=== PATIENT | female | born 1980 | race Two or more races ===

== ENCOUNTER 2017-01-22 21:12 | Emergency (ER) | payer OTHER ==
[~2017-01-22] VITALS: Ht 167.6 cm; Wt 93.0 kg
[~2017-01-22 21:12] MED LIST: AMOXIL500 M2 PO; IBUPROFEN800 MG; MOTRIN600 MG PO; ROBAXIN 750750 M1
[2017-01-22] MEDS ORDERED: XANAX0.5 M1 PO (21:21)
== END 2017-01-22 22:33 | disposition home or self-care (01) ==
LOC: SED 21:12
DX: M70.32 Other bursitis of elbow, left elbow (principal); F17.210 Nicotine dependence, cigarettes, uncomplicated; Z79.899 Other long term (current) drug therapy
CPT/HCPCS: 29260; 99283

== ENCOUNTER 2017-01-24 14:16 | Emergency (ER) | payer OTHER ==
[~2017-01-24] VITALS: Ht 167.6 cm; Wt 94.8 kg
--- NOTE | ~2017-01-24 | CR90 ---
[facility]. [facility] A Service of [facility] & [facility] RADIOLOGY TEXT RESULTS PATIENT: ROBER POWER LOCATION: SED : 84 UNIT #: [id number] AGE: [address]: Luciano Pradhan MD SEX: F ORDER DR: [id number] [address] [address] [id number] E MR#: [id number] Acc #: [id number] NAME: ROBER POWER : 1980 SEX: F STUDY DATE/TIME: 01/24/2017 15:59 UNIT: SED ROOM: STUDY DESCRIPTION: CR Elbow 2 View Lt Attending Physician: Luciano Pradhan M.D. Ordering Physician: Luciano Pradhan M.D. Primary Care Physician: Rex Sanders M.D. MEDICAL IMAGING REPORT This report is preliminary unless electronic signature is present. EXAM Left elbow. INDICATIONS Redness and swelling in the left elbow for 2 days. FINDINGS Three views of the left elbow without comparison. There is no acute fracture, dislocation, or effusion. There is some soft tissue swelling over the posterior aspect of the elbow. No foreign body. IMPRESSION 1. Negative for fracture. 2. Mild soft tissue swelling over the posterior elbow. Dictated by... Junior Roberson M.D. THIS IS AN ELECTRONICALLY VERIFIED REPORT Junior Roberson M.D. at 01/25/2017 5:17 PM NOAH/sally TD: 01/25/2017 17:03 JOB #: [id number] MEDICAL IMAGING REPORT Page 1 of 1
[~2017-01-24 14:16] MED LIST changes: +XANAX0.5 M1 PO
[2017-01-24 15:52] LABS: BASOPHIL% 0.3 % (0-2.5); EOSINOPHIL# 0.1 X10e3 (0-0.7); EOSINOPHIL% 1.2 % (0.0-7.0); HEMATOCRIT 32.9 % (35.0-45.0); HEMOGLOBIN 10.9 gm/dL (12.0-16.0); LYMPHOCYTE# 2.2 X10e3 (1.0-3.5); LYMPHOCYTE% 22.1 % (17.0-45.0); MEAN CELL VOLUME 83.1 FL (83-96); MEAN CORPUSCULAR HEMOGLOBIN 27.4 PG (28-34); MEAN PLATELET VOLUME 8.4 FL (6.5-11.5); MONOCYTE# 0.5 X10e3 (0-1.0); MONOCYTE% 5.2 % (3.0-12.0); NEUTROPHIL# 7.3 X10e3 (1.5-7.1); NEUTROPHIL% 71.2 % (40-75); PLATELET COUNT 251 X10e3 (140-420); RED BLOOD COUNT 3.96 X10e (3.90-5.30); RED CELL DISTRIBUTION WIDTH 14.8 % (11.0-15.5); WHITE BLOOD COUNT 10.2 X10e3 (4.0-10.5)
[2017-01-24 15:53] LABS: DIFF IND NO
[2017-01-24 16:03] LABS: URINE SOURCE CLEAN CATCH
[2017-01-24 16:05] LABS: URINE APPEARANCE CLEAR; URINE BILIRUBIN NEG (NEG); URINE BLOOD NEG (NEG); URINE COLOR YELLOW; URINE GLUCOSE NEG (NORM); URINE KETONE NEG (NEG); URINE LEUKOCYTE ESTERASE NEG (NEG); URINE NITRATE NEG (NEG); URINE PROTEIN NEG (NEG)
[2017-01-24 16:14] LABS: MICRO INDICATED? NO
[2017-01-24 16:17] LABS: AMPHETAMINE NEG (NEG); BARBITURATES NEG (NEG); BENZODIAZEPINES POS (NEG); COCAINE NEG (NEG); MARIJUANA POS (NEG); OPIATES NEG (NEG); TRICYCLIC ANTIDEPRESSANTS NEG (NEG); U METHADONE NEG (NEG)
[2017-01-24 16:20] LABS: BILIRUBIN,TOTAL 0.4 mg/dL (0.2-2.0); BUN/CREATININE RATIO 15.71; CALCIUM SERUM 8.6 mg/dL (8.4-10.2); CREATININE SERUM 0.7 mg/dL (0.6-1.4); POTASSIUM 3.5 mmol/L (3.5-5.1); PROTEIN TOTAL SERUM 6.7 g/dL (6.0-8.3)
== END 2017-01-24 20:10 ==
LOC: SED 14:16
PROVIDERS: Emergency Medicine
DX: L03.114 Cellulitis of left upper limb (principal); F41.9 Anxiety disorder, unspecified; F17.210 Nicotine dependence, cigarettes, uncomplicated; Z79.899 Other long term (current) drug therapy
CPT/HCPCS: 36415; 73070; 80053; 80307; 81003; 83605; 85025; 87040; 96365; 96375; 99284; J1170; J1200; J2270; J2405; J2543; J3370